=== PATIENT | female | born 1960 | race Caucasian/White ===

== ENCOUNTER 2021-06-03 13:34 | Observation (INO) ==
[~2021-06-03 13:34] MED LIST: *HR* HYDROmorphone PF 0.5 MG/0.5 ML SYRINGE IVP PRN; Ondansetron 4 MG/2 ML VIAL IVP PRN; Ringers Solution, Lactated 1,000 ML IVC SCH
[2021-06-03] MEDS ORDERED: Clindamycin 900 MG/50 ML 900 MG/50 ML IV.SOLN IVPB ONE (14:03)
[2021-06-03] MEDS ORDERED: *HR* FentaNYL (PF) 100 MCG/2 ML VIAL ONE (14:12)
[2021-06-03] MEDS ORDERED: Ondansetron 4 MG/2 ML VIAL ONE (14:13)
[2021-06-03] MEDS ORDERED: Lidocaine -MPF 2% 2 ML VIAL ONE (14:13)
[2021-06-03] MEDS ORDERED: Ringers Solution, Lactated 1,000 ML IVC SCH (14:15)
[2021-06-03] MEDS ORDERED: Acetaminophen IV 1,000 MG/100 ML BAG IVPB ONE (14:28)
[2021-06-03] MEDS ORDERED: Lidocaine HCL 4 ML Topical Solution (Laryng-O-Jet Kit Sterile Pak) TP ONE (14:30)
[2021-06-03] MEDS ORDERED: *HR* HYDROMORPHONE 2 MG/ML VIAL ONE (15:12)
[2021-06-03] MEDS ORDERED: *HR* HYDROmorphone PF 0.5 MG/0.5 ML SYRINGE IVP PRN (16:32)
[2021-06-03] MEDS ORDERED: Ondansetron 4 MG/2 ML VIAL IVP PRN ×2 (16:32→18:14)
[2021-06-03] MEDS ORDERED: Morphine Sulfate Oral CONC 10 MG/0.5 ML ORAL.SYG SL PRN (18:14)
[2021-06-03] MEDS ORDERED: *HR* OxyCODONE Immed Rel 5 MG TABLET PO PRN (18:14)
[2021-06-03] MEDS: Ketorolac 30 MG/ML VIAL IVP SCH ×2 (19:24→23:50)
[2021-06-03] MEDS: *HR* Heparin 5,000 UNIT/ML VIAL SQ SCH (19:24)
[2021-06-03] MEDS: cefOXitin 1,000 MG in Water for inj. (sterile) 10 ML IVP SCH (23:50)
[2021-06-04] MEDS: Ketorolac 30 MG/ML VIAL IVP SCH ×4 (04:45→22:50)
[2021-06-04] MEDS: *HR* Heparin 5,000 UNIT/ML VIAL SQ SCH ×2 (04:45→16:50)
[2021-06-04] MEDS: Loratadine 10 MG TABLET PO SCH (07:43)
[2021-06-04] MEDS: amLODIPine 5 MG TABLET PO SCH (07:43)
[2021-06-04] MEDS: Aspirin Enteric Coated 81 MG Tablet PO SCH (07:43)
[2021-06-04] MEDS: cefOXitin 1,000 MG in Water for inj. (sterile) 10 ML IVP SCH ×3 (07:44→22:50)
[2021-06-04] MEDS: Nicotine 21 MG PATCH.TD24 TD SCH (12:17)
[2021-06-04] MEDS ORDERED: Water for inj. (sterile) 10 ML ONE (16:53)
[2021-06-05] MEDS: *HR* Heparin 5,000 UNIT/ML VIAL SQ SCH (05:21)
[2021-06-05] MEDS: Ketorolac 30 MG/ML VIAL IVP SCH ×2 (05:21→12:44)
[2021-06-05] MEDS: Nicotine 21 MG PATCH.TD24 TD SCH (09:17)
[2021-06-05] MEDS: Loratadine 10 MG TABLET PO SCH (09:17)
[2021-06-05] MEDS: Aspirin Enteric Coated 81 MG Tablet PO SCH (09:17)
[2021-06-05] MEDS: cefOXitin 1,000 MG in Water for inj. (sterile) 10 ML IVP SCH (09:17)
[2021-06-05] MEDS: amLODIPine 5 MG TABLET PO SCH (09:17)
[2021-06-05 15:16] VITALS: BP 153/86; PULSE 68; TEMP 98.3; O2SAT 95
== END 2021-06-05 15:58 | disposition home or self-care (01) ==
LOC: SAMDAY 13:34 → 3BNU 13:34
PROVIDERS: ADMIT Surgery; ATTEND Surgery